=== PATIENT | female | born 1945 | race Caucasian/White ===

== ENCOUNTER 2017-03-21 06:56 | Inpatient (IN) | payer MEDICARE, BC ==
[2017-03-21] MEDS ORDERED: Lactated Ringers 1,000 ML IV ONE ×2 (07:18→08:16)
[2017-03-21] MEDS ORDERED: CEFAZOLIN 2 GM-D5W BAG** 2 GM/50 ML ML IV ONE (07:18)
[2017-03-21] MEDS: Lactated Ringers 1,000 ML IV SCH ×2 (07:53→23:00)
[2017-03-21] MEDS ORDERED: CEFAZOLIN 2 GM-D5W BAG** 2 GM/50 ML ML IV SCH (08:00)
[2017-03-21 08:31] LABS: BLOOD UREA NITROGEN 20 mg/dL (9-20); CHLORIDE 104 mEq/L (98-107); Carbon Dioxide 26.3 mEq/L (21-32); Glucose 110 MG/DL (70-110); Potassium 3.5 mEq/L (3.5-5.1); SODIUM 140 mEq/L (136-145)
--- NOTE | 2017-03-21 09:36 | XRAY ---
Indication: Preop exam. Comparison: August 17, 2006. AP/lateral weightbearing right knee now demonstrates moderate bicompartmental degenerative changes as evidenced by joint space loss, sclerosis, and spurring. No other bony, articular, or soft tissue abnormalities.
--- NOTE | 2017-03-21 10:52 | OP ---
SURGERY DATE/TIME: 03/21/2017 0940 PREOPERATIVE DIAGNOSIS: Degenerative joint disease right knee. POSTOPERATIVE DIAGNOSIS: Degenerative joint disease right knee. PROCEDURES: 1) Right total knee arthroplasty. 2) X-ray per surgeon. 3) Long leg splint. SURGEON: Ravi Chau D.O. CLIENT ACCOUNT REPRESENTATIVE: None. ANESTHESIA: Spinal per PROCESS PLANNER. ESTIMATED BLOOD LOSS: 100. DESCRIPTION OF PROCEDURE: The patient is taken to the operative suite and placed in supine position, given a general anesthetic. Sterile air filtration suits were used. Spinal was given. Tourniquet applied, inflated, exsanguinated to 350 for about an hour. Incision made middle of the knee above the patella and 2 inches below the tibial tubercle, 2 inches medial parapatellar. Incision developed and then the knee flexed up to 90 degrees. I started the process by removing marginal meniscal tissue and synovial tissue, medial joint line collapse and varus collapse was released medially and then post developed medial internal port of the femoral condyles just up from the insertion and then placed on this post. There was a 10 to 12 mm cut from the distal femur. The knee was then placed with external rotation of 3 degrees and 5 to 7 degrees of valgus on the distal femur. Chamfer cuts were then developed and chamfer cuts were created. Returned to the tibia and tibia was then sized to 2 mm from the medial size and 9+ from the lateral side. Bone cuts created and the PCO was retained. Meniscal tissue removed. A 9 mm bite block was insured. Provisional trial was then performed and found to be stable. We then turned our attention to the patella. The patella was sized to about 24 mm in thickness or so, 9 to 10 mm were cut. Post holes were developed in the patella and had a trial patellar button. The knee was thoroughly irrigated with saline and then cementation of the tibial component, femoral component, patellar component and extruded cement was removed. Balancing was performed and then balancing a polyethylene liner of 11 mm was or so was chosen on the [employer] system. X-rays taken for review of the balancing of the femur on the tibia. Bone cuts down to the head of the fibula. Rotational and valgus issues were insured and the knee came out to full extension. The tourniquet was disinflated. Bleeding was controlled where appropriate and then closure with interrupted Ethibond in the parapatellar incision, 0 Vicryl subcutaneous layer and ronald in the skin. Xeroform, 4X4 and sterile dressing applied and long leg splint at the finish of the case at this point.
--- NOTE | 2017-03-21 12:49 | XRAY ---
Indication: Postop total knee replacement. Comparison: Taken earlier in the day. AP and crosstable lateral right knee demonstrates interval total knee arthroplasty with intact prosthesis. Soft tissue changes, drainage tubing, cutaneous ronald, and external brace attest to recent surgery. No other bony, articular, or soft tissue abnormalities.
[2017-03-21] MEDS ORDERED: BENADRYL 25 MG CAPSULE PO PRN (13:17)
[2017-03-21] MEDS ORDERED: PROVENTIL 2.5 MG/3 ML NEB IH PRN ×2 (13:23→13:42)
[2017-03-21] MEDS ORDERED: SUMATRIPTAN SUCCINATE PO SCH (13:30)
[2017-03-21] MEDS ORDERED: ADVAIR 500-50 DISKUS IH SCH (13:30)
[2017-03-21] MEDS: MORPHINE SULFATE 4 MG INJ IV SCH ×3 (13:30→18:05)
[2017-03-21] MEDS ORDERED: Ventolin Hfa MDI IH SCH (13:30)
[2017-03-21] MEDS ORDERED: Advair Hfa 230/21 Mcg COMMON CANISTER IH PRN (13:30)
[2017-03-21] MEDS: BENADRYL 50 MG/ML IV PRN (13:37)
[2017-03-21] MEDS ORDERED: PROVENTIL COMMON CANISTER IH PRN ×2 (13:40→13:45)
[2017-03-21] MEDS: Morphine PCA 1 MG/ML 30 ML IV PRN (14:10)
[2017-03-21] MEDS: Advair Hfa 230/21 Mcg COMMON CANISTER IH SCH (19:29)
[2017-03-21] MEDS: Zocor 10MG PO SCH (21:27)
[2017-03-21] MEDS: VOLTAREN 50 MG PO SCH (21:28)
[2017-03-21] MEDS ORDERED: DICLOFENAC SODIUM PO SCH (22:00)
[2017-03-22] MEDS: KEFZOL 1 GM/50 ML PREMIX** 1 GM/50 ML IVPB IV SCH ×2 (00:26→09:25)
[2017-03-22] MEDS: BENADRYL 50 MG/ML IV PRN ×3 (02:58→17:59)
[2017-03-22 06:18] LABS: Mean Cell Volume 98.3 fl (78-100); Mean Platelet Volume 9.6 fl (6-9.5); Platelet Count 207 K/mm3 (150-450); Red Blood Count 3.53 M/mm3 (4.1-5.4); White Blood Count 17.4 K/mm3 (4.0-10.5)
[2017-03-22 06:58] LABS: Mean Corpuscular Hemoglobin 29.4 pg (26-32)
[2017-03-22] MEDS: Advair Hfa 230/21 Mcg COMMON CANISTER IH SCH ×2 (07:14→19:19)
[2017-03-22] MEDS: Morphine PCA 1 MG/ML 30 ML IV PRN ×3 (07:31→15:02)
[2017-03-22] MEDS: NORVASC 5 MG PO SCH (09:26)
[2017-03-22] MEDS: SYNTHROID 88 MCG PO SCH ×2 (09:26→09:27)
[2017-03-22] MEDS: LASIX 20 MG PO SCH (09:26)
[2017-03-22] MEDS: Calcium 500MG W/Vit D Tablet PO SCH (09:26)
[2017-03-22] MEDS: Klor Con 10 MEQ PO SCH (09:26)
[2017-03-22] MEDS: Toprol-Xl 25MG Tablets PO SCH (09:26)
[2017-03-22] MEDS: Protonix 40MG Tablet PO SCH (09:26)
[2017-03-22] MEDS: ESTRACE 1 MG PO SCH (09:27)
[2017-03-22] MEDS: CLARITIN 10 MG PO SCH (09:27)
[2017-03-22] MEDS: ENOXAPARIN SODIUM SQ SCH ×2 (09:27→22:10)
[2017-03-22] MEDS: Lexapro 10 MG PO SCH (09:27)
[2017-03-22] MEDS: THERAGRAN MULTIVITAMIN PO SCH (09:29)
[2017-03-22] MEDS: VOLTAREN 50 MG PO SCH ×2 (09:30→22:09)
[2017-03-22] MEDS ORDERED: FEXOFENADINE HCL PO SCH (10:00)
[2017-03-22] MEDS ORDERED: Flonase NASAL NS SCH (10:00)
[2017-03-22] MEDS ORDERED: ESCITALOPRAM OXALATE PO SCH (10:00)
[2017-03-22] MEDS ORDERED: NON-FORMULARY ITEM (Omeprazole 20 Mg [Prilosec 20 Mg] 1 TAB) PO SCH (10:00)
[2017-03-22] MEDS ORDERED: NON-FORMULARY ITEM (Multivitamin [Multi-Vitamin Daily] 1 TAB) PO SCH (10:00)
[2017-03-22] MEDS ORDERED: PRAVASTATIN SODIUM PO SCH (10:00)
[2017-03-22] MEDS ORDERED: BENADRYL 25 MG CAPSULE PO ONE (13:45)
[2017-03-22] MEDS: Lactated Ringers 1,000 ML IV SCH (15:06)
[2017-03-22] MEDS ORDERED: DIPRIVAN 200 MG/20 ML IV ONE (15:18)
[2017-03-22] MEDS ORDERED: Astramorph-Pf 5 MG/10 ML IV ONE (15:18)
[2017-03-22] MEDS ORDERED: Versed 2 MG/2 ML Injection IV ONE (15:18)
--- NOTE | 2017-03-22 16:03 | XRAY ---
Exam: AP upright portable chest film from 03/22/2017. Comparison: None. Indication: "Checking for active disease before staying in rehabilitation unit". Findings: The film was obtained in a lordotic projection. The heart size appears prominent and is probably either at the upper limits of normal to borderline enlarged. No central vascular congestion is seen. I see no definite air space infiltrates. No pneumothorax or pleural fluid is seen. Metallic densities from the patient's bra are noted overlying the upper abdomen. There are a couple clip densities and at least 3 other radiodensities within the lower cervical spine, perhaps due to prior surgical fusion at C6-C7. Correlate with surgical history. Both acromioclavicular joint spaces appears somewhat prominent. Correlate clinically regarding past partial resection of the lateral end of the clavicles. Hypertrophic change at the superior lateral margin of each humeral head is seen. No acute osseous process is seen. Impression: 1. Borderline cardiomegaly without evidence of acute heart failure or pulmonary edema. 2. No gross lung infiltrates are seen on this lordotic portable chest radiograph. 3. Other incidental findings as discussed above.
[2017-03-22] MEDS: NORCO 5/325 MG PO PRN (22:10)
[2017-03-22] MEDS: Zocor 10MG PO SCH (22:10)
[2017-03-22] MEDS: Flonase NASAL NS SCH (22:11)
[2017-03-23] MEDS: Advair Hfa 230/21 Mcg COMMON CANISTER IH SCH ×2 (06:56→18:36)
[2017-03-23] MEDS: THERAGRAN MULTIVITAMIN PO SCH (09:27)
[2017-03-23] MEDS: Protonix 40MG Tablet PO SCH (09:27)
[2017-03-23] MEDS: Toprol-Xl 25MG Tablets PO SCH (09:27)
[2017-03-23] MEDS: Klor Con 10 MEQ PO SCH (09:27)
[2017-03-23] MEDS: CLARITIN 10 MG PO SCH (09:27)
[2017-03-23] MEDS: NORVASC 5 MG PO SCH (09:27)
[2017-03-23] MEDS: SYNTHROID 88 MCG PO SCH (09:27)
[2017-03-23] MEDS: LASIX 20 MG PO SCH (09:28)
[2017-03-23] MEDS: ESTRACE 1 MG PO SCH (09:28)
[2017-03-23] MEDS: Calcium 500MG W/Vit D Tablet PO SCH (09:28)
[2017-03-23] MEDS: Lexapro 10 MG PO SCH (09:28)
[2017-03-23] MEDS: ENOXAPARIN SODIUM SQ SCH ×2 (09:40→23:02)
[2017-03-23] MEDS: VOLTAREN 50 MG PO SCH ×2 (10:14→23:03)
[2017-03-23] MEDS: Morphine PCA 1 MG/ML 30 ML IV PRN (13:52)
[2017-03-23] MEDS: Zocor 10MG PO SCH (23:03)
[2017-03-23] MEDS: Flonase NASAL NS SCH (23:03)
[2017-03-23] MEDS: NORCO 5/325 MG PO PRN (23:32)
[2017-03-23] MEDS: Lactated Ringers 1,000 ML IV SCH (23:33)
[2017-03-24 07:15] VITALS: BP 158/68
[2017-03-24] MEDS: Advair Hfa 230/21 Mcg COMMON CANISTER IH SCH (07:33)
[2017-03-24 07:38] VITALS: PULSE 75; O2SAT 94
[2017-03-24] MEDS: THERAGRAN MULTIVITAMIN PO SCH (08:10)
[2017-03-24] MEDS: Lexapro 10 MG PO SCH (08:10)
[2017-03-24] MEDS: Protonix 40MG Tablet PO SCH (08:10)
[2017-03-24] MEDS: LASIX 20 MG PO SCH (08:10)
[2017-03-24] MEDS: NORVASC 5 MG PO SCH (08:10)
[2017-03-24] MEDS: SYNTHROID 88 MCG PO SCH (08:10)
[2017-03-24] MEDS: Calcium 500MG W/Vit D Tablet PO SCH (08:10)
[2017-03-24] MEDS: Klor Con 10 MEQ PO SCH (08:10)
[2017-03-24] MEDS: CLARITIN 10 MG PO SCH (08:10)
[2017-03-24] MEDS: Toprol-Xl 25MG Tablets PO SCH (08:10)
[2017-03-24] MEDS: ENOXAPARIN SODIUM SQ SCH (09:26)
[2017-03-24] MEDS: ESTRACE 1 MG PO SCH (09:26)
[2017-03-24] MEDS: VOLTAREN 50 MG PO SCH (09:26)
[2017-03-24] MEDS: NORCO 5/325 MG PO PRN (09:56)
== END 2017-03-24 11:20 | DRG 470 ==
LOC: MED SURG 06:56 → SDC 06:56 → EDSTATUS 07:47
PROVIDERS: ADMIT Orthopaedic Surgery; ATTEND Orthopaedic Surgery
PROC: 0SRC0J9 Replacement of Right Knee Joint with Synthetic Substitute, Cemented, Open Approach (ICD-10-PCS; principal; 2017-03-21)
PROC: 2W3LX1Z Immobilization of Right Lower Extremity using Splint (ICD-10-PCS; 2017-03-21)
DX: M17.11 Unilateral primary osteoarthritis, right knee (principal); M25.561 Pain in right knee; I25.10 Atherosclerotic heart disease of native coronary artery without angina pectoris; I10 Essential (primary) hypertension; E03.9 Hypothyroidism, unspecified; E66.3 Overweight; Z79.899 Other long term (current) drug therapy
CPT/HCPCS: 01382; 36415; 71010; 73560; 80048; 85027; 87070; 87086; 94640; 94760; 94762; J0690; J1200; J1650; J2250; J2270; J2274; J2704; L1830; 97110-GP; A9270-GY

== ENCOUNTER 2021-05-31 09:15 | Day surgery (SDC) | payer MEDICARE, BC ==
--- NOTE | 2021-05-31 08:12 | HP ---
DATE OF SURGERY: 05/31/2021 HISTORY OF PRESENT ILLNESS: The patient is a 75-year-old with no prior colonoscopy, no bloody stools and no pain. Occasional constipation but no regular change in bowel movements. Family history negative for colon cancer. The patient is in need of screening colonoscopy. I feel she is a candidate. PAST MEDICAL HISTORY: Heart disease. She has a leaky valve. She has got diabetes mellitus type II. History of sliding hiatal hernia, hypothyroidism, asthma, diabetes, hypertension, hypercholesterolemia. PAST SURGICAL HISTORY: Tonsillectomy. Episiotomy. Hysterectomy. Oophorectomy. Oral surgery. Lumbar decompression, laminectomy. Rotator cuff. Cervical fusion. Total knee replacement on the right. Cataract surgery. Ankle surgery. Heart cath. MEDICATIONS: Fexofenadine, levothyroxine for hypothyroidism, metformin, vitamin D2, vitamin B12, metoprolol, lisinopril, pravastatin, omeprazole, furosemide, potassium, Estrace, fluticasone nasal spray, Ventolin for some chronic lung disease, cranberry supplements, Slow Fe, GenTeal Tears Mild Eye Drops, complete multivitamins, Tylenol Arthritis, hydrocodone, ALLERGIES: ASPIRIN. IBUPROFEN. CELEBREX. MORPHINE. NIASPAN. ESTRADIOL. CEFDINIR. SYMBICORT. ETODOLAC. TRAMADOL. HYDROCHLOROTHIAZIDE. VOLTAREN. LATEX. FAMILY HISTORY: Heart disease, skin cancer, diabetes, hypertension. SOCIAL HISTORY: Denies smoking. REVIEW OF SYSTEMS: Fourteen systems reviewed. No chest pain or palpitations. Otherwise pertinent for chronic medical problems as noted above. PHYSICAL EXAMINATION: GENERAL: No acute distress. HEENT: Sclerae nonicteric. CHEST: Equal excursion, breath sounds symmetrical. CVS: Regular rate and rhythm. ABDOMEN: Soft, nondistended. EXTREMITIES: No cyanosis. NEURO: Alert, oriented, moving extremities symmetrically. RECTAL: Deferred timed to endoscopy exam. PSYCH: Appropriate mood and affect. IMPRESSION: Need for screening colonoscopy. I feel the patient is a candidate. She was shown the risk sheet and explained the procedure in detail but not limited to bleeding or infection, risk of bowel injury or perforation possibly requiring open procedure, risk of missed or nondiagnosis or incomplete exam possibly requiring barium enema, other studies or procedures, general risk of anesthesia or sedation but not limited to. Consent obtained, will proceed with outpatient screening colonoscopy.
[2021-05-31] MEDS ORDERED: Lactated Ringers 1,000 ML IV SCH (10:00)
[2021-05-31] MEDS ORDERED: Lactated Ringers 1,000 ML IV ONE (10:14)
[2021-05-31] MEDS ORDERED: DIPRIVAN 200 MG/20 ML IV ONE ×2 (11:13→11:33)
[2021-05-31 12:42] VITALS: BP 177/82; PULSE 98; O2SAT 97
--- NOTE | 2021-06-01 07:45 | OP ---
SURGERY DATE/TIME: 05/31/2021 1114 PREOPERATIVE DIAGNOSIS: Screening colonoscopy. POSTOPERATIVE DIAGNOSES: 1) Small early polyp versus hyperplastic lesion rectosigmoid. 2) Mild diverticulosis left colon. 3) Fair bowel prep. 4) ASA Class II. 5) Withdrawal time approximately 8 minutes. PROCEDURES: 1) Colonoscopy to cecum. 2) Hot biopsy removal polypectomy small early rectosigmoid colon polyp versus hyperplastic lesion. SURGEON: Dr. Joe Eastman. ANESTHESIA: MAC. ESTIMATED BLOOD LOSS: Minimal. INDICATIONS: As noted above. Risks and benefits explained in detail but not limited to and consent obtained. DESCRIPTION OF PROCEDURE AND FINDINGS: The patient is taken to the endoscopy room. MAC anesthesia induced. After official time out and no disagreement with planned procedure, digital rectal exam did not reveal any rectal masses. Video colonoscope inserted and passed up through the slightly tortuous sigmoid, descending, transverse and ascending colon. With the external pressure the scope was able to reach the cecum. Appendiceal orifice and valve area well visualized. The scope is carefully withdrawn over the next 8 minutes. No signs of any large polyps, masses or obstructing lesions. She had fair bowel prep with a little bit of liquidy semisolid stool throughout the colon that was suctioned and irrigated as clear as possible. Back in the rectosigmoid area, small early polyp versus hyperplastic lesion removed with hot biopsy forceps with brief bursts of cautery. Good hemostasis was noted. Otherwise she had some small diverticula in the left colon. No signs of any large polyps, masses or obstructing lesion. The scope is withdrawn. There is no family here to discuss the findings with. I will see her back in the office in the next week or two.
== END 2021-05-31 12:56 | disposition home or self-care (01) ==
LOC: SDC 09:15
PROVIDERS: ATTEND Surgery
DX: Z12.11 Encounter for screening for malignant neoplasm of colon (principal); K57.30 Diverticulosis of large intestine without perforation or abscess without bleeding; K63.5 Polyp of colon; E11.9 Type 2 diabetes mellitus without complications; Z79.899 Other long term (current) drug therapy
CPT/HCPCS: 82947; 99100; J2704